=== PATIENT | female | born 1990 | race Caucasian/White ===

== ENCOUNTER → 2020-01-16 | Outpatient (CLI) | payer OTHER | LOC: COL.RAD 07:04 | DX: R51 Headache (principal) | CPT/HCPCS: A9585 ==

== ENCOUNTER 2020-01-29 07:58 | Outpatient (CLI) | payer OTHER ==
[~2020-01-29] VITALS: Ht 170.2 cm; Wt 93.6 kg
[2020-01-29] MEDS ORDERED: CYMBALTA 60MG60 MG PO (08:06)
[2020-01-29] MEDS ORDERED: NAPROSYN500 MG PO (08:07)
[2020-01-29 08:09] VITALS: BP 120/77; PULSE 92
[2020-01-29 09:18] VITALS: BP 122/77; PULSE 75
[2020-01-29 09:35] VITALS: BP 117/77; PULSE 78
[2020-01-29 09:50] VITALS: BP 120/70; PULSE 80
[2020-01-29 10:13] LABS: CSF MONONUCLEAR 50 % (70-100); CSF POLYMORPHONUCLEAR 50 % (0-6); CSF RBC 4000 /mm3 (0-0)
[2020-01-29 10:19] LABS: GLUCOSE,CSF 60 mg/dL (40-70); TOTAL PROTEIN,CSF 26 mg/dL (15-45)
[2020-01-29 10:27] LABS: CSF APPEARANCE CLEAR; CSF COLOR PINK
[2020-01-29 10:30] VITALS: BP 120/70; PULSE 78
== END 2020-01-29 10:48 | disposition home or self-care (01) ==
LOC: COL.RAD 07:58
PROVIDERS: Psychiatry & Neurology Neurology
DX: R51 Headache (principal)

== ENCOUNTER → 2020-02-25 | Outpatient (CLI) | payer OTHER ==
[~2020-02-25] MED LIST: CYMBALTA 60MG60 MG PO; NAPROSYN500 MG PO
== END ==
LOC: COL.RAD 13:13
DX: R51 Headache (principal); R83.6 Abnormal cytological findings in cerebrospinal fluid